=== PATIENT | male | born 1940 | race Asian ===

== ENCOUNTER 2018-05-15 16:51 | Inpatient (IN) | payer MEDICARE, OTHER ==
[~2018-05-15] VITALS: Ht 170.2 cm; Wt 65.3 kg
[2018-05-15] MEDS ORDERED: LEVOFLOXACIN 750MG PREMIX 150 ML IV STA (17:13)
[2018-05-15] MEDS ORDERED: ALBUTEROL (0.083%) 2.5MG/3ML NEB HHN STA ×2 (17:13→18:18)
[2018-05-15] MEDS ORDERED: IPRATROPIUM BROMIDE (0.02%) 0.5MG/2.5ML NEB HHN STA (17:13)
[2018-05-15] MEDS ORDERED: METHYLPREDNISOLONE SOD SUCC 125 MG/2 ML VIAL IV STA (17:13)
[2018-05-15] MEDS ORDERED: APIX2.5T PO (17:15)
[2018-05-15] MEDS ORDERED: AMLO5TAB88 PO (17:15)
[2018-05-15] MEDS ORDERED: METO-396 PO (17:16)
[2018-05-15 17:26] LABS: HEMATOCRIT. 40.8 % (42.0-52.0); HEMOGLOBIN. 13.7 g/dL (14.0-18.0); MEAN CORPUSCULAR HEMOGLOBIN 35.8 pg (28.0-32.0); MEAN CORPUSCULAR VOLUME 106.1 fL (80.0-94.0); MEAN PLATELET VOLUME 8.7 fl (7.4-10.4); PLATELET 145 x1000/uL (130-400); RED BLOOD CELL COUNT 3.84 mill/uL (4.7-6.1); RED CELL DISTRIBUTION WIDTH 17.6 % (11.6-14.6)
[2018-05-15 17:29] LABS: CHLORIDE 100 mEq/L (98-107)
[2018-05-15 17:30] LABS: PROTHROMBIN TIME 9.8 sec (9.1-11.1)
[2018-05-15 17:42] LABS: PLATELET ESTIMATE NORMAL
[2018-05-15 19:54] LABS: CLARITY URINE CLEAR (CLEAR); COLOR URINE YELLOW (YELLOW); KETONES URINE NEGATIVE (NEGATIVE); LEUKOCYTE ESTERASE URINE NEGATIVE (NEGATIVE); NITRITE URINE NEGATIVE (NEGATIVE); OCCULT BLOOD URINE 2+ (NEGATIVE); PH URINE 6.5 (4.5-8.0); PROTEIN URINE 3+ (NEGATIVE); SPECIFIC GRAVITY URINE 1.016 (1.005-1.030)
[2018-05-15] MEDS ORDERED: IPRATROPIUM/ALBUTEROL 0.5-3(2.5)MG/3ML NEB INH PRN (20:15)
[2018-05-15] MEDS ORDERED: GUAIFENESIN 200MG/10ML SUGAR FREE UDC PO PRN (20:15)
[2018-05-15] MEDS ORDERED: ONDANSETRON HCL 4MG/2ML INJ IV PRN (20:15)
[2018-05-15 20:40] LABS: BG BASE EXCESS 1.2 mmol/L (-2.0-2.0); BG BILEVEL POS AIRWAY PRESSURE 15/5; BG CARBOXYHEMOGLOBIN 0.3 % (0.5-1.5); BG DEOXYHEMOGLOBIN 0.7 % (0.0-5.0); BG FRACTION INSPIRED OXYGEN 50; BG HCO3 ACT 27.2 mmol/L (22.0-26.0); BG METHEMOGLOBIN 0.3 % (0.0-1.5); BG OXYGEN SATURATION 99.3 % (92.0-98.5); BG OXYHEMOGLOBIN 98.7 % (94.0-97.0); BG PH 7.362 (7.350-7.450); BG PO2 253.7 mmHg (75.0-100.0); BG SAMPLE SITE RIGHT RADIAL; BG TOTAL HEMOGLOBIN 12.7 g/dL (12.0-18.0); BG VENT MODE MASK - BIPAP; BG VENT RATE 20 set
[2018-05-15 22:00] VITALS: BP 157/74
[2018-05-16] VITALS (12 sets, daily range): BP systolic 111–176; BP diastolic 58–97
[2018-05-16] MEDS: IPRATROPIUM/ALBUTEROL 0.5-3(2.5)MG/3ML NEB INH SCH ×4 (01:55→21:49)
[2018-05-16] MEDS: METHYLPREDNISOLONE SOD SUCC 125 MG/2 ML VIAL IV SCH ×7 (06:00→23:14)
[2018-05-16 06:05] LABS: CHLORIDE 102 mEq/L (98-107)
[2018-05-16 06:15] LABS: LDL CHOLESTEROL 65 mg/dL (5-100)
[2018-05-16 06:17] LABS: HDL CHOLESTEROL 58 mg/dL (40-59)
[2018-05-16 06:28] LABS: BASOPHILS % 0.2 % (0.0-2.0); HEMATOCRIT. 32.9 % (42.0-52.0); HEMOGLOBIN. 11.2 g/dL (14.0-18.0); LYMPHOCYTES % 2.5 % (20.0-50.0); MEAN CORPUSCULAR HEMOGLOBIN 36.1 pg (28.0-32.0); MEAN CORPUSCULAR VOLUME 105.6 fL (80.0-94.0); MEAN PLATELET VOLUME 8.8 fl (7.4-10.4); MONOCYTES % 1.4 % (2.0-8.0); NEUTROPHILS % 95.9 % (40.0-76.0); PLATELET 114 x1000/uL (130-400); RED BLOOD CELL COUNT 3.11 mill/uL (4.7-6.1); RED CELL DISTRIBUTION WIDTH 17.8 % (11.6-14.6)
[2018-05-16 07:21] LABS: BG BASE EXCESS 1.4 mmol/L (-2.0-2.0); BG BILEVEL POS AIRWAY PRESSURE 15/5; BG CARBOXYHEMOGLOBIN 0.9 % (0.5-1.5); BG DEOXYHEMOGLOBIN 1.4 % (0.0-5.0); BG HCO3 ACT 26.5 mmol/L (22.0-26.0); BG METHEMOGLOBIN 0.3 % (0.0-1.5); BG OXYGEN SATURATION 98.6 % (92.0-98.5); BG OXYHEMOGLOBIN 97.4 % (94.0-97.0); BG PCO2 44.1 mmHg (35.0-45.0); BG PH 7.397 (7.350-7.450); BG PO2 129.9 mmHg (75.0-100.0); BG SAMPLE SITE RIGHT RADIAL; BG TOTAL HEMOGLOBIN 12.5 g/dL (12.0-18.0); BG VENT MODE MASK - BIPAP; BG VENT RATE 20 set
[2018-05-16] MEDS: ENOXAPARIN 40MG/0.4ML SYR SUBCUT SCH (09:16)
[2018-05-16] MEDS ORDERED: BENZONATATE 100MG CAPSULE PO PRN (14:45)
[2018-05-16] MEDS: NICOTINE 14MG PATCH TD SCH (16:39)
[2018-05-16] MEDS: LEVOFLOXACIN 250MG PREMIX 50 ML IV SCH (16:39)
[2018-05-16] MEDS ORDERED: LEVOFLOXACIN 500MG PREMIX 100 ML IV SCH (17:00)
[2018-05-16] MEDS: CLONIDINE 0.1MG TABLET PO PRN (22:36)
[2018-05-16] MEDS: AMLODIPINE 5MG TABLET PO SCH (23:14)
[2018-05-16] MEDS: METOPROLOL TARTRATE 100MG TABLET PO SCH (23:16)
[2018-05-17] VITALS (12 sets, daily range): BP systolic 110–171; BP diastolic 61–101
[2018-05-17] MEDS: IPRATROPIUM/ALBUTEROL 0.5-3(2.5)MG/3ML NEB INH SCH ×4 (02:07→20:19)
[2018-05-17] MEDS: METHYLPREDNISOLONE SOD SUCC 125 MG/2 ML VIAL IV SCH ×4 (05:02→23:47)
[2018-05-17] MEDS: METOPROLOL TARTRATE 100MG TABLET PO SCH ×2 (08:34→21:40)
[2018-05-17] MEDS: LOSARTAN POTASSIUM 50 MG TABLET PO SCH (08:35)
[2018-05-17] MEDS: ENOXAPARIN 40MG/0.4ML SYR SUBCUT SCH (08:36)
[2018-05-17] MEDS: NICOTINE 14MG PATCH TD SCH (09:00)
[2018-05-17] MEDS: APIXABAN 5 MG TABLET PO SCH (14:45)
[2018-05-17] MEDS: LEVOFLOXACIN 250MG PREMIX 50 ML IV SCH (15:31)
[2018-05-17] MEDS ORDERED: TERBUTALINE SULFATE 1MG/ML VIAL SUBCUT NR (17:15)
[2018-05-17] MEDS: AMLODIPINE 5MG TABLET PO SCH (21:40)
[2018-05-18] VITALS (12 sets, daily range): BP systolic 118–161; BP diastolic 58–90
[2018-05-18] MEDS: IPRATROPIUM/ALBUTEROL 0.5-3(2.5)MG/3ML NEB INH SCH ×6 (04:04→20:56)
[2018-05-18] MEDS: METHYLPREDNISOLONE SOD SUCC 125 MG/2 ML VIAL IV SCH ×3 (05:12→20:18)
[2018-05-18] MEDS: LOSARTAN POTASSIUM 50 MG TABLET PO SCH (09:43)
[2018-05-18] MEDS: NICOTINE 14MG PATCH TD SCH (09:44)
[2018-05-18] MEDS: METOPROLOL TARTRATE 100MG TABLET PO SCH ×2 (09:44→20:19)
[2018-05-18] MEDS: APIXABAN 5 MG TABLET PO SCH ×2 (09:44→16:17)
[2018-05-18] MEDS ORDERED: TERBUTALINE SULFATE 1MG/ML VIAL SUBCUT NR (15:53)
[2018-05-18] MEDS: CLONIDINE 0.1MG TABLET PO PRN ×2 (16:17→22:46)
[2018-05-18] MEDS: LEVOFLOXACIN 250MG PREMIX 50 ML IV SCH (16:18)
[2018-05-18] MEDS: AMLODIPINE 5MG TABLET PO SCH (20:19)
[2018-05-19] VITALS (12 sets, daily range): BP systolic 120–154; BP diastolic 62–93
[2018-05-19] MEDS: IPRATROPIUM/ALBUTEROL 0.5-3(2.5)MG/3ML NEB INH SCH ×5 (00:13→16:52)
[2018-05-19] MEDS: METHYLPREDNISOLONE SOD SUCC 125 MG/2 ML VIAL IV SCH ×3 (03:08→22:30)
[2018-05-19] MEDS: METOPROLOL TARTRATE 100MG TABLET PO SCH ×2 (08:36→21:00)
[2018-05-19] MEDS: NICOTINE 14MG PATCH TD SCH (08:36)
[2018-05-19] MEDS: LOSARTAN POTASSIUM 50 MG TABLET PO SCH (08:36)
[2018-05-19] MEDS: APIXABAN 5 MG TABLET PO SCH ×2 (08:36→16:21)
[2018-05-19 15:26] LABS: BG BASE EXCESS 2.4 mmol/L (-2.0-2.0); BG CARBOXYHEMOGLOBIN 0.8 % (0.5-1.5); BG DEOXYHEMOGLOBIN 4.9 % (0.0-5.0); BG HCO3 ACT 26.5 mmol/L (22.0-26.0); BG METHEMOGLOBIN 0.2 % (0.0-1.5); BG OXYGEN SATURATION 95.1 % (92.0-98.5); BG OXYHEMOGLOBIN 94.1 % (94.0-97.0); BG PCO2 39.5 mmHg (35.0-45.0); BG PH 7.445 (7.350-7.450); BG SAMPLE SITE RIGHT RADIAL; BG TOTAL HEMOGLOBIN 13.3 g/dL (12.0-18.0); BG VENT MODE ROOM AIR
[2018-05-19] MEDS: LEVOFLOXACIN 250MG PREMIX 50 ML IV SCH (16:21)
[2018-05-19] MEDS ORDERED: TERBUTALINE SULFATE 1MG/ML VIAL SUBCUT NR (17:52)
[2018-05-19] MEDS: AMLODIPINE 5MG TABLET PO SCH (21:00)
[2018-05-19] MEDS: CLONIDINE 0.1MG TABLET PO PRN (22:32)
[2018-05-20] VITALS (12 sets, daily range): BP systolic 130–180; BP diastolic 62–94
[2018-05-20] MEDS: METHYLPREDNISOLONE SOD SUCC 125 MG/2 ML VIAL IV SCH (05:16)
[2018-05-20] MEDS: IPRATROPIUM/ALBUTEROL 0.5-3(2.5)MG/3ML NEB INH SCH ×4 (08:25→21:01)
[2018-05-20] MEDS: APIXABAN 5 MG TABLET PO SCH (08:39)
[2018-05-20] MEDS: LOSARTAN POTASSIUM 50 MG TABLET PO SCH (08:39)
[2018-05-20] MEDS: METOPROLOL TARTRATE 100MG TABLET PO SCH ×2 (08:39→20:02)
[2018-05-20] MEDS: NICOTINE 14MG PATCH TD SCH (08:40)
[2018-05-20] MEDS: LEVOFLOXACIN 250MG TABLET PO SCH (12:35)
[2018-05-20 13:22] LABS: HEMATOCRIT. 37.8 % (42.0-52.0); MEAN CORPUSCULAR HEMOGLOBIN 35.9 pg (28.0-32.0); MEAN CORPUSCULAR VOLUME 104.2 fL (80.0-94.0); MEAN PLATELET VOLUME 9.2 fl (7.4-10.4); PLATELET 160 x1000/uL (130-400); RED BLOOD CELL COUNT 3.62 mill/uL (4.7-6.1); RED CELL DISTRIBUTION WIDTH 17.5 % (11.6-14.6)
[2018-05-20 13:25] LABS: CHLORIDE 103 mEq/L (98-107)
[2018-05-20 15:37] LABS: ATYPICAL LYMPHOCYTES 1; NUCLEATED RED BLOOD CELLS 1 /100 WBC; PLATELET ESTIMATE NORMAL
[2018-05-20 16:58] LABS: PROTHROMBIN TIME 10.4 sec (9.1-11.1)
[2018-05-20] MEDS ORDERED: WARFARIN SODIUM 5MG TABLET PO SCH (18:00)
[2018-05-20] MEDS: PREDNISONE 20MG TABLET PO SCH (18:05)
[2018-05-20] MEDS: AMLODIPINE 5MG TABLET PO SCH (20:02)
[2018-05-20] MEDS: ENOXAPARIN 80MG/0.8ML SYR SUBCUT SCH (20:03)
[2018-05-20] MEDS: CLONIDINE 0.1MG TABLET PO PRN (21:43)
[2018-05-21] VITALS (14 sets, daily range): BP systolic 127–165; BP diastolic 54–96
[2018-05-21] MEDS: IPRATROPIUM/ALBUTEROL 0.5-3(2.5)MG/3ML NEB INH SCH ×6 (01:03→20:20)
[2018-05-21 05:58] LABS: INR 1.1; PROTHROMBIN TIME 11.1 sec (9.1-11.1)
[2018-05-21] MEDS: METOPROLOL TARTRATE 100MG TABLET PO SCH ×2 (08:37→20:37)
[2018-05-21] MEDS: PREDNISONE 20MG TABLET PO SCH ×2 (08:37→16:49)
[2018-05-21] MEDS: LOSARTAN POTASSIUM 50 MG TABLET PO SCH (08:38)
[2018-05-21] MEDS: ENOXAPARIN 80MG/0.8ML SYR SUBCUT SCH ×2 (08:40→20:37)
[2018-05-21] MEDS: NICOTINE 14MG PATCH TD SCH (08:40)
[2018-05-21] MEDS: LEVOFLOXACIN 250MG TABLET PO SCH (11:02)
[2018-05-21] MEDS ORDERED: WARFARIN SODIUM 7.5MG TABLET PO NR (18:00)
[2018-05-21] MEDS: AMLODIPINE 5MG TABLET PO SCH (20:37)
[2018-05-22] VITALS: BP 161/73
[2018-05-22] MEDS: IPRATROPIUM/ALBUTEROL 0.5-3(2.5)MG/3ML NEB INH SCH ×5 (00:22→16:00)
[2018-05-22 02:00] VITALS: BP 134/81
[2018-05-22 04:00] VITALS: BP 134/86
[2018-05-22 06:00] VITALS: BP 154/88
[2018-05-22 06:47] LABS: INR 1.7; PROTHROMBIN TIME 16.7 sec (9.1-11.1)
[2018-05-22 08:30] VITALS: BP 151/65
[2018-05-22] MEDS: METOPROLOL TARTRATE 100MG TABLET PO SCH (08:44)
[2018-05-22] MEDS: NICOTINE 14MG PATCH TD SCH (08:45)
[2018-05-22] MEDS: PREDNISONE 20MG TABLET PO SCH (08:45)
[2018-05-22] MEDS: ENOXAPARIN 80MG/0.8ML SYR SUBCUT SCH (08:47)
[2018-05-22] MEDS: LOSARTAN POTASSIUM 50 MG TABLET PO SCH (08:48)
[2018-05-22] MEDS: LEVOFLOXACIN 250MG TABLET PO SCH (11:51)
[2018-05-22 16:13] VITALS: BP 147/77
[2018-05-22] MEDS ORDERED: WARFARIN SODIUM 3MG TABLET PO SCH (18:00)
== END 2018-05-22 17:50 | disposition home or self-care (01) | DRG 189 ==
LOC: ER 16:51 → 5EST 18:36 → EDBEDREQTM 18:43 → EDBEDREQ 18:43 → SUPCPDRO 20:10 → ENRESERV 20:31
PROVIDERS: ADMIT Hospitalist; ATTEND Hospitalist
PROC: 5A09357 Assistance with Respiratory Ventilation, Less than 24 Consecutive Hours, Continuous Positive Airway Pressure (ICD-10-PCS; principal; 2018-05-15)
PROC: 5A09357 Assistance with Respiratory Ventilation, Less than 24 Consecutive Hours, Continuous Positive Airway Pressure (ICD-10-PCS; 2018-05-16)
PROC: 5A09357 Assistance with Respiratory Ventilation, Less than 24 Consecutive Hours, Continuous Positive Airway Pressure (ICD-10-PCS; 2018-05-17)
PROC: 5A09357 Assistance with Respiratory Ventilation, Less than 24 Consecutive Hours, Continuous Positive Airway Pressure (ICD-10-PCS; 2018-05-18)
PROC: 5A09357 Assistance with Respiratory Ventilation, Less than 24 Consecutive Hours, Continuous Positive Airway Pressure (ICD-10-PCS; 2018-05-19)
DX: J96.00 Acute respiratory failure, unspecified whether with hypoxia or hypercapnia (principal); J44.1 Chronic obstructive pulmonary disease with (acute) exacerbation; E87.2 Acidosis; D68.59 Other primary thrombophilia; R26.0 Ataxic gait; D64.9 Anemia, unspecified; D72.825 Bandemia; F17.210 Nicotine dependence, cigarettes, uncomplicated; E80.6 Other disorders of bilirubin metabolism; I12.9 Hypertensive chronic kidney disease with stage 1 through stage 4 chronic kidney disease, or unspecified chronic kidney disease; I25.10 Atherosclerotic heart disease of native coronary artery without angina pectoris; I48.91 Unspecified atrial fibrillation; N18.9 Chronic kidney disease, unspecified; I25.2 Old myocardial infarction; Z95.5 Presence of coronary angioplasty implant and graft; Z95.810 Presence of automatic (implantable) cardiac defibrillator; Z79.01 Long term (current) use of anticoagulants; Z88.8 Allergy status to other drugs, medicaments and biological substances; Z79.899 Other long term (current) drug therapy
CPT/HCPCS: 36415; 36600; 71045; 78582; 80061; 82375; 82805; 83605; 84145; 84484; 87804; 93970; 94640; 94660; 96365; 96375; 97116; 97162; 99291; A9558; J1650; J1956; J2930; J3105; J7050; J7512; J7611; J7620